=== PATIENT | female | born 1980 | race American Indian/Alaskan Native ===

== ENCOUNTER 2018-12-23 10:12 | Emergency (ER) | payer OTHER ==
[2018-12-23] MEDS ORDERED: FUL-GLO OP ONE (12:35)
[2018-12-23] MEDS ORDERED: TETRACAINE 0.5% OU ONE (12:35)
--- NOTE | 2018-12-23 13:29 | Emergency Department Report ---
ED General Adult HPI - General Chief complaint: Eye Problems Stated complaint: RIGHT EYE PAIN Time Seen by Provider: 12/23/18 12:10 Source: patient Mode of arrival: Ambulatory Limitations: No Limitations - History of Present Illness Initial comments: Patient presents to emergency department today complaining of right eye pain that started yesterday. Patient states contact us to try yesterday morning and she's had pain since that time. She describes the pain as burning in nature and made worse with light. Patient denies any other injury tonight. Patient states she is able to see fine out of right eye. -: Sudden Location: eyes Severity scale (0 -10): 4 Quality: sharp Consistency: constant Improves with: none Worsens with: none Associated Symptoms: denies other symptoms Treatments Prior to Arrival: none - Related Data Previous Rx's Medication Instructions Recorded Last Taken Type Ibuprofen [Motrin] 800 mg PO TID PRN #30 tablet 09/29/13 Unknown Rx Vit-Fe Fumar-FA [ 1 each PO ONCE #60 tablet 09/29/13 Unknown Rx Vitamin] Gentamicin 0.3% Ophth Oint 1 applicatio OP Q4H #1 tube 12/23/18 Unknown Rx Ibuprofen [Motrin] 800 mg PO Q8HR PRN #30 tablet 12/23/18 Unknown Rx traMADol [Ultram] 50 mg PO Q6HR PRN #20 tablet 12/23/18 Unknown Rx Allergies Allergy/AdvReac Type Severity Reaction Status Date / Time No Known Allergies Allergy Verified 12/23/18 10:28 ED Review of Systems ROS: Stated complaint: RIGHT EYE PAIN Other details as noted in HPI Comment: All other systems reviewed and negative Constitutional: denies: chills, fever Eyes: eye pain. denies: eye discharge, vision change ENT: denies: ear pain, throat pain Respiratory: denies: cough, shortness of breath, wheezing Cardiovascular: denies: chest pain, palpitations Endocrine: no symptoms reported Gastrointestinal: denies: abdominal pain, nausea, diarrhea Genitourinary: denies: urgency, dysuria, discharge Musculoskeletal: denies: back pain, joint swelling, arthralgia Skin: denies: rash, lesions Neurological: denies: headache, weakness, paresthesias Psychiatric: denies: anxiety, depression Hematological/Lymphatic: denies: easy bleeding, easy bruising ED Past Medical Hx - Past Medical History Previous Medical History?: No - Surgical History Past Surgical History?: No - Social History Smoking Status: Never Smoker Substance Use Type: None - Medications Home Medications: Home Medications Medication Instructions Recorded Confirmed Last Taken Type Ibuprofen [Motrin] 800 mg PO TID PRN #30 tablet 09/29/13 Unknown Rx Vit-Fe Fumar-FA [ 1 each PO ONCE #60 tablet 09/29/13 Unknown Rx Vitamin] Gentamicin 0.3% Ophth Oint 1 applicatio OP Q4H #1 tube 12/23/18 Unknown Rx Ibuprofen [Motrin] 800 mg PO Q8HR PRN #30 tablet 12/23/18 Unknown Rx traMADol [Ultram] 50 mg PO Q6HR PRN #20 tablet 12/23/18 Unknown Rx ED Physical Exam - General Limitations: No Limitations General appearance: alert, in no apparent distress - Head Head exam: Present: atraumatic, normocephalic - Eye Eye exam: Present: PERRL, EOMI, other (was lab exam shows a inferior corneal abrasion right eye not crossing the iris) - ENT ENT exam: Present: mucous membranes moist - Neck Neck exam: Present: normal inspection - Respiratory Respiratory exam: Present: normal lung sounds bilaterally. Absent: respiratory distress - Cardiovascular Cardiovascular Exam: Present: regular rate, normal rhythm. Absent: systolic murmur, diastolic murmur, rubs, gallop - Extremities Exam Extremities exam: Present: normal inspection - Back Exam Back exam: Present: normal inspection - Neurological Exam Neurological exam: Present: alert, oriented X3, CN II-XII intact. Absent: motor sensory deficit - Psychiatric Psychiatric exam: Present: normal affect, normal mood - Skin Skin exam: Present: warm, dry, intact, normal color. Absent: rash ED Course Vital Signs 12/23/18 10:29 Temperature 98.7 F Pulse Rate 88 Respiratory 16 Rate Blood Pressure 157/85 [Left] O2 Sat by Pulse 100 Oximetry ED Medical Decision Making - Radiology Data Radiology results: report reviewed - Medical Decision Making Discussed plan of care with patient Discussed the patient that she do not have a corneal ulcer on exam Critical care attestation.: If time is entered above; I have spent that time in minutes in the direct care of this critically ill patient, excluding procedure time. ED Disposition Clinical Impression: Corneal abrasion Disposition: DC- TO HOME OR SELFCARE Is pt being admited?: No Does the pt Need Aspirin: No Condition: Stable Instructions: Corneal Abrasion (ED) Additional Instructions: return if worse Prescriptions: Gentamicin 0.3% Ophth Oint 1 applicatio OP Q4H #1 tube Ibuprofen [Motrin] 800 mg PO Q8HR PRN #30 tablet PRN Reason: Pain traMADol [Ultram] 50 mg PO Q6HR PRN #20 tablet PRN Reason: Pain Referrals: LADY URBINA MD [Primary Care Provider] - 3-5 Days [facility] [Provider Group] - 3-5 Days [facility] [Provider Group] - 3-5 Days [facility] [Outside] - 3-5 Days Forms: Work/School Release Form(ED) Time of Disposition: 13:29
[2018-12-23 13:45] VITALS: BP 146/70
== END 2018-12-23 13:40 | disposition home or self-care (01) ==
LOC: ED 10:12
DX: S05.01XA Injury of conjunctiva and corneal abrasion without foreign body, right eye, initial encounter (principal); X58.XXXA Exposure to other specified factors, initial encounter; Y93.89 Activity, other specified; Y92.89 Other specified places as the place of occurrence of the external cause; Y99.8 Other external cause status
CPT/HCPCS: 99282

== ENCOUNTER 2019-05-22 09:08 | Emergency (ER) | payer SELFPAY ==
[2019-05-22 09:14] VITALS: BP 152/84
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
== END 2019-05-22 11:12 | disposition home or self-care (01) ==
LOC: EEVIPCON 09:08 → ED 09:08
DX: R07.89 Other chest pain (principal); M25.571 Pain in right ankle and joints of right foot; F17.200 Nicotine dependence, unspecified, uncomplicated; Z79.899 Other long term (current) drug therapy; Y04.0XXA Assault by unarmed brawl or fight, initial encounter; Y93.89 Activity, other specified; Y92.89 Other specified places as the place of occurrence of the external cause; Y99.8 Other external cause status